=== PATIENT | male | born 1945 | race Caucasian/White ===

== ENCOUNTER 2016-06-25 19:25 | Emergency (ER) | payer BC, OTHER ==
[2016-06-25] MEDS ORDERED: Cephalexin CAP* 500 MG PO ONE (21:21)
--- NOTE | 2016-06-25 21:22 | UC ---
Skin Complaint HPI - HPI Summary HPI Summary: pt presents with c/o of "rash on bilateral lower legs with left LLE worse than right. Also, c/o of swelling of LLE that has been non tender and gradual over last week. Pt reports that swelling diminishes over night but has been worsening over last 7 days. Pt also reports that RLE has begun to swell in the last 2-3 days and also developing erythematous rash. Pt has history of A-Fib and arthritis in bilateral knees. - History of Current Complaint Chief Complaint: UCLowerExtremity Time Seen by Provider: 06/25/16 21:00 Stated Complaint: RASH BILATERAL LEG Hx Obtained From: Patient Onset/Duration: Gradual Onset, Lasting Days - 7 days Skin Exposure Onset/Duration: Days Ago - 7 days Timing: Constant Onset Severity: Mild Current Severity: Moderate Location: Discrete - bilateral lower extremities, Character: Swelling - LLE 2- 3 + pitting edema RLE extremity 1+ pitting edema, Redness Aggravating: Other - dependent standing, or sitting with legs dependent Alleviating: Other - lower leg elevation Associated Signs & Symptoms: Positive: Rash - Allergy/Home Medications Allergies/Adverse Reactions: Allergies Allergy/AdvReac Type Severity Reaction Status Date / Time Adhesive Tape Allergy Rash Verified 06/25/16 20:55 Hydrocodone [From Vicodin] AdvReac Intermediate dizzy Verified 06/25/16 20:55 Home Medications: Home Medications Dronedarone TAB* [Multaq TAB*] 400 mg PO BID 06/25/16 [History Confirmed ] Edoxaban 60 MG (NF) [Savaysa 60 MG TABLET (NF)] 60 mg PO DAILY 06/25/16 [ History Confirmed 06/25/16] Lzieowtvuql-Ywsxplpsczr-Kgl C- [Glucosamine Chondroitin] 1 cap PO DAILY [History Confirmed 06/25/16] HYDROcodone/ACETAMIN 5-325 MG* [Kiron 5-325 TAB*] 1 tab PO BEDTIME 06/25/16 [ History Confirmed 06/25/16] Ibuprofen TAB* [Advil TAB*] 800 mg PO DAILY 06/25/16 [History Confirmed 06/25/16 ] Review of Systems Constitutional: Negative Skin: Rash Eyes: Negative ENT: Negative Respiratory: Negative - Denies SOB or cough Cardiovascular: Negative - denies CP Gastrointestinal: Negative Genitourinary: Negative Motor: Decreased ROM - Lextremities and low back. Has chronic LOw back pain Neurovascular: Negative Musculoskeletal: Edema - right > than left Neurological: Negative Psychological: Negative All Other Systems Reviewed And Are Negative: Yes PMH/Surg Hx/FS Hx/Imm Hx Previously Healthy: No - see PMH Endocrine History Of: Denies: Diabetes, Thyroid Disease, Hyperthyroidism, Hypothyroidism, Dyslipidemia Cardiovascular History Of: Reports: Cardiac Disorders - h/o a fib--in NSR x11 months Denies: Hypertension, Pacemaker/ICD, Myocardial Infarction, Congestive Heart Failure, Atrial Fibrillation, Deep Vein Thrombosis, Bleeding Disorders Respiratory History Of: Denies: COPD, Asthma, Bronchitis, Pneumonia, Pulmonary Embolism GI/ History Of: Denies: Gastroesophageal Reflux, Ulcer, Gastrointestinal Bleed, Gall Bladder Disease, Kidney Stones, Diverticulitis, Renal Disease, Urosepsis Neurological History Of: Denies: TIA, CVA, Dementia, Seizures, Migraine Psychological History Of: Denies: Anxiety, Depression, Bipolar Disorder, Schizophrenia, Post Traumatic Stress Disorder Cancer History Of: Denies: Lung Cancer, Colorectal Cancer, Breast Cancer, Prostate Cancer, Cervical Cancer - Surgical History Surgical History: Yes Surgery Procedure, Year, and Place: gallbladder, hernia x 2 - Family History Known Family History: Positive: Other - positive for URI - Social History Lives: With Family Alcohol Use: Occasionally Substance Use Type: None Smoking Status (MU): Never Smoked Tobacco - Immunization History Most Recent Influenza Vaccination: [id number] Most Recent Pneumonia Vaccination: 2014 and April 2015 Physical Exam Triage Information Reviewed: Yes Appearance: Well-Appearing Vital Signs: Initial Vital Signs Temp 98.4 F 06/25/16 20:48 Pulse 82 06/25/16 20:48 Resp 18 06/25/16 20:48 BP 135/82 06/25/16 20:48 Pulse Ox 96 06/25/16 20:48 Eye Exam: Normal ENT Exam: Normal Respiratory Exam: Normal Respiratory: Positive: No respiratory distress Cardiovascular Exam: Normal Cardiovascular: Positive: RRR Musculoskeletal: Positive: Edema @ - right: 1+ pitting edema, generalized erythema, Left 2-3 + pitting edema , positive pedal pulse, generalized edema, right foot, warm slightly dusky, macurlapapular rash scattered below knee bilateral Neurological Exam: Normal Psychological Exam: Normal Skin: Positive: rashes Course/Dx - Course Course Of Treatment: Idsicussed with the pt that he needed to follow up with his PCP and/or cardioligist as soon as possible. Pt denied SOB, CP or cough. Pt denied pain or tenderness with exam of lower extremities. Pt verbalized understanding and agreed to plan of care - Differential Diagnoses - Skin Complaint Differential Diagnoses: Cellulitis, Other - CHF-? - Diagnoses Provider Diagnoses: Lowe extermity edema. cellulitis. CHF-? Discharge - Discharge Plan Condition: Stable Disposition: HOME Prescriptions: Cephalexin CAP* [Keflex 500 CAP*] 500 mg PO TID #30 cap Furosemide TAB* [Lasix TAB*] 80 mg PO DAILY #14 tab Patient Education Materials: Cellulitis (ED), Leg Edema (ED) Referrals: Abner Veras DO [Primary Care Provider] - As Soon As Possible (It is recommended that you follow up with your PCP and/or decorative cutting machine tender as soon as possible. I recommend that if your condition worsens prior to being able to be seen by your PCP or decorative cutting machine tender then you should seek care at the nearest Emergency department.)
[2016-06-25 21:26] VITALS: BP 135/82
== END 2016-06-25 21:46 | disposition home or self-care (01) ==
LOC: UCCORT 19:25
DX: L03.116 Cellulitis of left lower limb (principal); L03.115 Cellulitis of right lower limb; R60.0 Localized edema; I48.91 Unspecified atrial fibrillation; Z79.01 Long term (current) use of anticoagulants; Z90.49 Acquired absence of other specified parts of digestive tract; Z88.5 Allergy status to narcotic agent
CPT/HCPCS: 99212; A9270-GY; G0463

== ENCOUNTER 2017-03-14 11:13 | Emergency (ER) | payer BC, OTHER ==
[2017-03-14 12:10] VITALS: BP 155/74
--- NOTE | 2017-03-14 12:33 | UC ---
Hand/Wrist HPI - HPI Summary HPI Summary: most years during change to winter weather patient get cracked dry itchy dermatitis on his fingers--unsure what causes it-- - History Of Current Complaint Chief Complaint: UCSkin Stated Complaint: JANE HAND/FINGER SWELLING Time Seen by Provider: 03/14/17 12:24 Hx Obtained From: Patient ?: No Onset/Duration: Gradual Onset, Lasting Days, Still Present Severity Initially: Moderate Severity Currently: Moderate Character Of Pain: Aching, Stiffness Aggravating Factor(s): Movement Alleviating Factor(s): Heat Associated Signs And Symptoms: Positive: Swelling Related History: Dominant Hand Right - Allergies/Home Medications Allergies/Adverse Reactions: Allergies Allergy/AdvReac Type Severity Reaction Status Date / Time Adhesive Tape Allergy Rash Verified 03/14/17 12:10 Hydrocodone [From Vicodin] AdvReac Intermediate dizzy Verified 03/14/17 12:10 Home Medications: Home Medications Meloxicam [Mobic] 7.5 mg PO 03/14/17 [History] PMH/Surg Hx/FS Hx/Imm Hx Previously Healthy: No Cardiovascular History: Hypertension GI/ History: Gastroesophageal Reflux - Surgical History Surgical History: Yes Surgery Procedure, Year, and Place: gallbladder, hernia x 2 - Family History Known Family History: Positive: Other - positive for URI - Social History Occupation: Employed Full-time Lives: With Family Alcohol Use: Weekly Substance Use Type: None Smoking Status (MU): Never Smoked Tobacco - Immunization History Most Recent Influenza Vaccination: current [id number] Most Recent Pneumonia Vaccination: 2014 and April 2015 Review of Systems Constitutional: Negative Skin: Other - red dry cracked skin on both hands Eyes: Negative ENT: Negative Respiratory: Negative Cardiovascular: Negative Gastrointestinal: Negative Genitourinary: Negative Motor: Negative Neurovascular: Negative Musculoskeletal: Negative Neurological: Negative Psychological: Negative Is Patient Immunocompromised?: No All Other Systems Reviewed And Are Negative: Yes Physical Exam Triage Information Reviewed: Yes Appearance: Well-Appearing, Pain Distress - mild, Obese Vital Signs: Initial Vital Signs Temp 97.6 F 03/14/17 12:04 Pulse 83 03/14/17 12:04 Resp 16 03/14/17 12:04 BP 155/74 03/14/17 12:04 Pulse Ox 96 03/14/17 12:04 Vital Signs Reviewed: Yes Eye Exam: Normal Eyes: Positive: Conjunctiva Clear ENT Exam: Normal ENT: Positive: Normal ENT inspection, Hearing grossly normal, Pharynx normal. Negative: Nasal congestion, Trismus, Muffled voice, Hoarse voice Dental Exam: Normal Neck exam: Normal Neck: Positive: Supple, Nontender Respiratory Exam: Normal Respiratory: Positive: No respiratory distress, No accessory muscle use Cardiovascular Exam: Normal Cardiovascular: Positive: Pulses Normal, Brisk Capillary Refill Musculoskeletal Exam: Normal Musculoskeletal: Positive: Strength Intact, ROM Intact, Edema @ - fingers of both hands Neurological Exam: Normal Neurological: Positive: Alert, Muscle Tone Normal Psychological Exam: Normal Skin: Positive: Other - atopic dermitis both hands Hand/Wrist Course/Dx - Course Course Of Treatment: clobetasol, keflex, avoid frequent washing and hot soapy water follow with dermatology in 2 weeks, follow bp with pcp in 2 weeks - Differential Dx/Diagnosis Provider Diagnoses: Elevated blood pressure with dx of hypertension, atopic dermititis both hands Discharge - Discharge Plan Condition: Stable Disposition: HOME Prescriptions: Cephalexin CAP* [Keflex CAP*] 500 mg PO QID #28 cap Clobetasol 0.05% OINT* 1 applic TOPICAL BID #60 gm Patient Education Materials: Contact Dermatitis (ED), Hypertension (ED) Referrals: Jeremy Copeland MD [Medical Doctor] - 2 Weeks Abner Veras DO [Primary Care Provider] - 2 Weeks
== END 2017-03-14 12:47 | disposition home or self-care (01) ==
LOC: UCCORT 11:13
DX: L20.9 Atopic dermatitis, unspecified (principal); I10 Essential (primary) hypertension; K21.9 Gastro-esophageal reflux disease without esophagitis; E66.9 Obesity, unspecified; Z88.5 Allergy status to narcotic agent; Z91.048 Other nonmedicinal substance allergy status
CPT/HCPCS: 99212; G0463

== ENCOUNTER 2017-12-09 10:12 | Day surgery (SDC) | payer BC ==
[~2017-12-09 10:12] MED LIST: Buffered Lidocaine 0.9% SYRIN* 5 ML/SYR SYRINGE INTRADERM ONE; Famotidine IV* 10 MG/ML 2 ML (20 mg) IV ONE
[2017-12-09] MEDS ORDERED: Famotidine IV* 10 MG/ML 2 ML (20 mg) ONE (10:51)
[2017-12-09] MEDS ORDERED: Clindamycin 900 MG IVPREMIX(* 900 MG/50 ML SDV IV ONE (10:51)
[2017-12-09] MEDS ORDERED: Midazolam* 1 MG/ML 5 ML VIAL (5 MG) ONE (12:00)
[2017-12-09] MEDS ORDERED: fentaNYL* 50 MCG/ML 2 ML VIAL (100 MCG VIAL) ONE ×2 (12:00→14:04)
[2017-12-09] MEDS ORDERED: ROPIVACAINE 5 MG/ML 30 ML BTL (0.5%) ONE (12:37)
[2017-12-09] MEDS ORDERED: Naloxone* 0.4 MG/ML 1 ML VIAL IV PRN (13:05)
[2017-12-09] MEDS ORDERED: Acetaminophen TAB* 325 MG PO PRN (13:05)
[2017-12-09] MEDS ORDERED: DiMENhydriNATE IV* 50 MG/ML VIAL IV PUSH PRN (13:05)
[2017-12-09] MEDS ORDERED: Lidocaine 2% PF * 5 ML VIAL ONE (14:57)
[2017-12-09] MEDS ORDERED: Ondansetron INJ* 2 MG/ML VIAL ONE (14:57)
[2017-12-09] MEDS ORDERED: Dexamethasone IV* 4 MG/ML 1 ML (4 MG) ONE (14:57)
[2017-12-09] MEDS ORDERED: Ketorolac INJ* 30 MG/ML 1 ML VIAL ONE (14:57)
[2017-12-09] MEDS ORDERED: Propofol* 10 MG/ML 20 ML BTL IV PUSH ONE (14:57)
[2017-12-09] MEDS ORDERED: traMADol TAB* 50 MG ONE (15:57)
[2017-12-09 16:25] VITALS: BP 143/67
--- NOTE | 2017-12-10 00:49 | OP ---
Operative Report - Blank - Operative Report Date of Operation: 12/10/17 Note: DATE OF OPERATION: 12/09/17 - [facility] DATE OF : 1945 SURGEON: Esteban Baker MD POWER DIGGER OPERATOR: JOB Mireles ANESTHESIOLOGIST: Dr. Gu. ANESTHESIA: General. PRE-OP DIAGNOSIS: 1, Right carpal tunnel syndrome. 2, Right ulnar nerve compression at the wrist. 3. Right cubital tunnel syndrome. POST-OP DIAGNOSIS: 1, Right carpal tunnel syndrome. 2, Right ulnar nerve compression at the wrist. 3. Right cubital tunnel syndrome. 4. Right olecranon bursitis. OPERATIVE PROCEDURE: 1. Right carpal tunnel release. 2. Right ulnar nerve decompression at the elbow with anterior transmuscular transposition. 3. Right ulnar nerve decompression at the wrist. INDICATIONS: Mr. Walsh has electrodiagnostic and clinical ulnar nerve compression and carpal tunnel syndrome. He has been having increasing weakness and numbness in the right hand worse than the left. The electrodiagnostics also confirmed the diagnosis. He had wanted to intervene to see if he could preserve his neurological function. He understands the risks of incomplete neurological recovery and pain as well as wound problems and infection. He wishes to proceed. ESTIMATED BLOOD LOSS: 2 mL. COMPLICATIONS: None. FINDINGS: As expected. DESCRIPTION OF PROCEDURE: Jona was seen in the preoperative holding area. The correct side, site and the procedure were identified. We came back to the operating room. Anesthesia was induced. The arm was prepped and draped in usual fashion. The arm was exsanguinated with the Esmarch and the tourniquet was inflated to 250 mmHg. I made a 2 to 3 cm longitudinal incision in the standard location for an open carpal tunnel release. This was brought across the wrist in Alfredo fashion. Dissection was carried down through the subcutaneous tissue and palmar fascia. Transverse carpal ligament was released off the radial aspect of the hook of the hamate. The release was completed distally and proximally I released the remainder of the transverse carpal ligament and distal antebrachial fascia to level several centimeters proximal to the wrist flexion crease. The release at this point was complete. I then opened up the fascia overlying the entirety of Guyon's canal. The motor branch was released and the subfascial layer was released as well. Both the common digital nerve and proper digital nerve were seen as ulnar nerve divided distally. The motor branch was decompressed by releasing the hypothenar fascia including the deep fascia. Everything was fully decompressed. Once there had been absolutely no more compression on the nerve, I irrigated everything out. The skin was closed with 4-0 nylon suture. Everything was looking good with absolutely no compression on the nerve. I irrigated out the wound. Skin was closed with 4-0 nylon suture. Wounds were dressed appropriately and he was taken to recovery room in stable condition. I then made a curvilinear incision centered over Osbornes ligament. Dissection was carried down through the subcutaneous tissue taking care to identify and protect the medial antebrachial cutaneous nerve throughout the case. During the dissection I encountered some nodular tissue overlying Duncan 's ligament which tracked back posteriorly over the olecranon process. It had the appearance of an olecranon bursitis. I wanted to make sure that this was not contributing to the compression on the nerve so I excised this and sent it to the lab. I began the decompression just proximal to Osbornes ligament. I released the fascia overlying the nerve proximally up past the arcade of struthers. I then released Osbornes ligament and then superficial FCU fascia. I split the two head of the FCU and released the subfascial layer in its entirety preserving the motor branches. There was an anconeus epitrochlearis present and this was excised in its entirety. I then checked the decompression. The elbow was flexed and extended. There was subluxation of the nerve so I did need to transpose the nerve. I elevated a full thickness flap off the flexor pronator fascia. The medial intermuscular septum was excised. The leading edge of the FCU tendon was excised. Step-cut type fascial flaps were raised off the flexor pronator fascia. The nerve was released of its soft tissue attachments taking care to preserve the motor branches to the FCU. The nerve was transposed onto the muscular bed. The two ends of the fascial flaps were sewn end to end with 4-0 ethibond suture to keep the nerve in the transposed position. Hemostasis was then obtained. The subcutaneous tissue was reapproximated with 3- 0 vicryl suture. The skin was closed with 3-0 monocryl and steri strips. Marcaine 0.25% was infiltrated in the operative area. The wound was dressed with a plaster long-arm splint and the patient was woken up and taken to recovery in stable condition.
== END 2017-12-09 16:39 | disposition home or self-care (01) ==
LOC: OREAST 10:12
PROVIDERS: ATTEND Orthopaedic Surgery Hand Surgery
CPT/HCPCS: 88305; A9270-GY; J1100; J1885; J2250; J2405; J2704; J2795; J3010

== ENCOUNTER → 2018-10-20 07:30 | Day surgery (SDC) | payer BC ==
[~2018-10-20 07:30] MED LIST changes: -Buffered Lidocaine 0.9% SYRIN* 5 ML/SYR SYRINGE INTRADERM ONE; +Buffered Lidocaine 1% SYRIN* 1 ML/SYRINGE INTRADERM ONE; +Bupivacaine 0.25% SDV PF* 10 ML VIAL INJ ONE; +Dexamethasone IV* 4 MG/ML 1 ML (4 MG) ONE; -Famotidine IV* 10 MG/ML 2 ML (20 mg) IV ONE; +Famotidine IV* 10 MG/ML 2 ML (20 mg) ONE; +Ketorolac INJ* 30 MG/ML 1 ML VIAL ONE; +Lactated Ringers 1000 ML Bag* 1,000 ML IV SCH; +Midazolam* 1 MG/ML 2 ML VIAL (2 MG) ONE; +Naloxone* 0.4 MG/ML 1 ML VIAL IV PRN; +Ondansetron INJ* 2 MG/ML VIAL IV PRN; +Ondansetron INJ* 2 MG/ML VIAL ONE; +Propofol* 10 MG/ML 20 ML BTL ONE; +ceFAZolin 2 GM in NS PREMIX(*) 2 GM/100 ML BAG IVPB ONE; +ceFAZolin VIAL(*) VIAL ONE; +diPHENhydraMINE IV* 50 MG/ML 1 ml VIAL (BENADRYL) IV PRN; +fentaNYL* 50 MCG/ML 2 ML VIAL (100 MCG VIAL) IV PRN; +fentaNYL* 50 MCG/ML 2 ML VIAL (100 MCG VIAL) ONE; +traMADol TAB* 50 MG ONE; +traMADol TAB* 50 MG PO ONE
--- NOTE | 2018-10-20 13:08 | OP ---
DATE OF OPERATION: 10/20/18 - [facility] DATE OF : 47 SURGEON: Esteban Baker MD EMBEDDED HARDWARE ENGINEER: JOB Mireles. An housing assistant property manager was needed for the entirety of the procedure to aid in positioning of the arm and retraction. ANESTHESIOLOGIST: Dr. Mejia. ANESTHESIA: General. PRE-OP DIAGNOSES: 1. Left severe ulnar nerve compression at the wrist and elbow. 2. Left carpal tunnel syndrome. POST-OP DIAGNOSES: 1. Left severe ulnar nerve compression at the wrist and elbow. 2. Left carpal tunnel syndrome. OPERATIVE PROCEDURE: 1. Left in situ ulnar nerve decompression at the elbow with excision of anconeus- epitrochlearis muscle. 2. Left ulnar nerve decompression at the wrist with decompression of the motor branch. 3. Left open carpal tunnel release. INDICATIONS: Jona has severe left ulnar nerve compression resulting in marked atrophy and clumsiness in the hand as well as left carpal tunnel syndrome seen on his electrodiagnostic testing. We had talked about risks and benefits, he had wanted to proceed with nerve decompression surgery. ESTIMATED BLOOD LOSS: 2 mL. COMPLICATIONS: None. FINDINGS: See above and below. DESCRIPTION OF PROCEDURE: Jona was seen in the preoperative holding area. The correct site, side, and procedure were identified. We came back to the operating room where the arm was prepped and draped in the usual fashion and a time-out was performed. The arm was exsanguinated with the Esmarch and the tourniquet was inflated to 250 mmHg. I began by making a longitudinal incision in the proximal palm right across the wrist in Darrel type fashion. Dissection was carried down to the subcutaneous tissue in the palmar fascia. I exposed the entirety of the transverse carpal ligament and a self-retaining retractor was placed. I released the transverse carpal ligament just off the radial aspect of the hook of the hamate. The release was carried out from distal to proximal. Proximally , I released the distal antebrachial fascia until the median nerve was fully decompressed. After I had completed the carpal tunnel release, I came ulnar and I released the fascia overlying the Guyon's canal. He had an interesting anatomical variant and that his hypothenar fascia actually came in superficial to the sensory branches of the ulnar nerve. I went ahead and released the hypothenar fascia in the muscular origin of the hypothenar muscles and then traced the ulnar nerve out to all the way up to where it bifurcated. The sensory component bifurcated. There were several traversing vessels from a very prominent ulnar artery that were diving deeply. These were cauterized with the bipolar cautery and released to be able to have adequate visualization of the ulnar nerve. Once I had completed the release proximally as well and mobilized the sensory component of the nerve, I went ahead and gently retracted it with a Ragnell retractor and then decompressed the motor branch, taking all the way down releasing secondary hypothenar fascia and then hypothenar muscle and then the deep fascia all the way down around the hook of the hamate until the motor branch was completely decompressed. After I completed the ulnar nerve decompression and everything was fully released, I irrigated out the wound. The skin was closed with 4-0 nylon suture. The arm was abducted and externally rotated and a curvilinear incision was made , centered over the cubital tunnel. Dissection was carried down. The subcutaneous tissue was released. A very large anconeus-epitrochlearis muscle was encountered. This was excised in its entirety. He also had a very prominent medial head of the triceps and some of this was excised as well. The entirety of Duncan's ligament was released. I placed an appendiceal retractor proximally and released the fascia overlying the ulnar nerve all the way past the arcade of [place]. I then came distally and released the superficial FCU fascia. I split the 2 heads of the FCU and released the subfascial layer several centimeters distal to the medial epicondyle. At this point, the in situ decompression was looking very nice. We had preserved the branch of the medial antebrachial cutaneous nerve that crossed over the wound. The nerve was not subluxing at all and looked very nicely decompressed, so I decided a transposition was not necessary. I went ahead and irrigated out the wound. I obtained hemostasis with the Bovie and a bipolar. The subcutaneous tissue was reapproximated with 3-0 Vicryl suture. The skin was closed with 3-0 Monocryl and Steri-Strips. 0.25% plain Marcaine was infiltrated all about the operative areas. The wounds were dressed with Xeroform, 4x4, sterile Webril and ABD at the elbow and then a long arm plaster splint with a lateral buttress was applied. Tourniquet was deflated and the hand pinked up immediately. He was taken to the recovery room in stable condition. [id number]/[facility] #: [id number] WILLIE
[2018-10-20 13:34] VITALS: BP 138/77
== END | disposition home or self-care (01) ==
LOC: OR 07:30
PROVIDERS: ATTEND Orthopaedic Surgery Hand Surgery
DX: G56.22 Lesion of ulnar nerve, left upper limb (principal); G56.02 Carpal tunnel syndrome, left upper limb; E03.9 Hypothyroidism, unspecified; K21.9 Gastro-esophageal reflux disease without esophagitis; M19.90 Unspecified osteoarthritis, unspecified site; I48.1 Persistent atrial fibrillation; Z79.01 Long term (current) use of anticoagulants
CPT/HCPCS: A9270-GY; J0690; J1100; J1885; J2250; J2405; J2704; J3010; J3490